=== PATIENT | male | born 1990 | race Caucasian/White ===

== ENCOUNTER 2016-12-29 22:44 | Emergency (ER) | payer OTHER ==
[~2016-12-29] VITALS: Ht 177.8 cm; Wt 97.4 kg
[~2016-12-29 22:44] MED LIST: OXYC1TAB3 PO
[2016-12-29 22:48] VITALS: TEMP 36.6; Ht 177.8 cm; Wt 97.4 kg
[2016-12-29] MEDS ORDERED: SODIUM CHLORIDE 0.9% 1000ML 1,000 ML IV STA (23:11)
[2016-12-29] MEDS ORDERED: DiphenhydrAMINE HCL 50 MG/ML VIAL IV STA (23:11)
[2016-12-29] MEDS ORDERED: KETOROLAC TROMETHAMINE 30 MG/ML VIAL IV STA (23:11)
[2016-12-29] MEDS ORDERED: RANITIDINE HCL 50 MG/100 ML D5W IV STA (23:11)
[2016-12-29] MEDS ORDERED: DEXAMETHASONE SOD INJ 10 MG/ML VIAL IV ONE (23:15)
[2016-12-29 23:43] LABS: BASO % 0.4 %; BASO ABS # 0.02 K/uL (0-0.2); COMPLETE YES; EOS % 2.6 %; HEMATOCRIT 39.4 % (42-52); IG% 0.2 %; LYMPH % 38.9 %; LYMPH ABS # 2.06 K/uL (1.2-3.4); MEAN CELL VOLUME 84.9 fL (80-100); MEAN CORPUSCULAR HEMOGLOBIN 30.4 pg (25-34); MEAN CORPUSCULAR HGB CONC 35.8 g/dl (32-36); MEAN PLATELET VOLUME 9.1 fL (7.4-10.4); MONO % 8.5 %; NEUT % 49.4 %; PLATELET COUNT 191 K/uL (130-400); RED BLOOD COUNT 4.64 M/uL (4.7-6.1); WHITE BLOOD COUNT 5.29 K/uL (4.8-10.8)
[2016-12-30 00:04] LABS: BUN/CREATININE RATIO 6.3 (10-20); CALCIUM 8.4 mg/dl (8.5-10.1); CREATININE 0.73 mg/dl (0.60-1.40); POTASSIUM 3.4 mmol/L (3.5-5.1)
[2016-12-30 00:07] LABS: C-REACTIVE PROTEIN 3.18 mg/dl (0-0.29)
[2016-12-30] MEDS ORDERED: PRED50TA PO (01:49)
[2016-12-30 02:04] VITALS: BP 150/80; PULSE 80; O2SAT 98
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
--- NOTE | 2016-12-30 06:37 | DIAGNOSTIC IMAGING REPORT ---
BILATERAL LOWER EXTREMITY VENOUS DOPPLER HISTORY: Pain. Edema. leg edema COMPARISON STUDY: None. FINDINGS: There is normal compressibility, flow, and augmentation within the bilateral lower extremity deep venous systems. IMPRESSION: No DVT within the right or left lower extremity. Electronically signed by: Mateusz Ochoa M.D. 12/30/2016 6:35 AM Dictated Date/Time: 12/30/2016 6:35 AM
== END 2016-12-30 02:05 | disposition home or self-care (01) ==
LOC: C.EDB 22:45
DX: L30.9 Dermatitis, unspecified (principal); F17.200 Nicotine dependence, unspecified, uncomplicated

== ENCOUNTER 2017-09-21 19:20 | Emergency (ER) | payer OTHER ==
[~2017-09-21] VITALS: Ht 177.8 cm; Wt 102.5 kg
[2017-09-21 19:23] VITALS: BP 154/93; PULSE 114; TEMP 36.9; O2SAT 99; Ht 177.8 cm; Wt 102.5 kg
[2017-09-21] MEDS ORDERED: ACYC400T PO (19:39)
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
== END 2017-09-21 19:59 | disposition home or self-care (01) ==
LOC: C.EDB 19:21 → C.EDA 19:59
DX: A60.00 Herpesviral infection of urogenital system, unspecified (principal); F17.210 Nicotine dependence, cigarettes, uncomplicated